=== PATIENT | male | born 1980 | race African-American/Black ===

== ENCOUNTER 2016-12-14 19:41 | Emergency (ER) | payer OTHER ==
[~2016-12-14] VITALS: Ht 172.7 cm; Wt 66.2 kg
[2016-12-14] MEDS ORDERED: NKM (19:58)
[2016-12-14] MEDS ORDERED: IBUPROFEN600 MG ORAL (20:10)
[2016-12-14] MEDS ORDERED: AMOXICILLIN500 MG ORAL (20:14)
--- NOTE | 2016-12-14 20:19 | Emergency Room Report ---
History of Present Illness General Chief Complaint: Sore Throat Source: Patient Present Illness HPI Patient presented for sore throat. The patient had gradual onset of symptoms of the past 3 days. Patient reported having some neck pain. He denied any high fever. He reported having increased difficulty swallowing. Patient gradual onset of symptoms. Patient denies any allergies. He had worsening pain with swallowing. He denied any difficulty breathing. He denied cough. Allergies: Coded Allergies: No Known Allergies (Unverified , 12/14/16) Patient History Past Medical History: see triage record Reviewed Nursing Documentation: PMH: Agreed, PSxH: Agreed Nursing Documentation-PM Past Medical History: No History, Except For Hx Asthma: Yes History Of Psychiatric Problem: Yes - Depression Hx Seizures: Yes Review of Systems All Other Systems: negative except mentioned in HPI Physical Exam Vital Signs Date Time Temp Pulse Resp B/P Pulse Ox O2 Delivery O2 Flow Rate FiO2 12/14/16 19:54 98.2 102 16 151/98 95 Room Air General Appearance: well appearing, no apparent distress, alert, GCS 15 Head: normocephalic, atraumatic ENT: hearing grossly normal, normal voice Neck: full range of motion, supple Respiratory: lungs clear, normal breath sounds, no respiratory distress, speaking full sentences Cardiovascular #1: normal peripheral pulses, regular rate, rhythm Gastrointestinal: normal inspection, normal bowel sounds, soft, no mass Musculoskeletal: normal inspection, back normal, gait/station normal, no calf tenderness Neurologic: normal inspection, alert, oriented x3, normal gait Psychiatric: mood/affect normal Skin: no rash Medical Decision Making Diagnostic Impression: Primary Impression: Sore throat ER Course Patient presented for a sore throat. Differential diagnosis included but was not limited to meningitis, exudative tonsillitis, retropharyngeal abscess, epiglottitis, strep pharyngitis. Patient's benign exam and does not appear to require any further imaging or laboratory testing at this time. Patient does not appear to have evidence of abscess the patient appears to have some petechia consistent with a strep pharyngitis. The patient is advised to follow up with primary care doctor in 1-2 days. Patient is advised to return if any worsening condition or if any changes in status that are concerning. Last Vital Signs Date Time Temp Pulse Resp B/P Pulse Ox O2 Delivery O2 Flow Rate FiO2 12/14/16 19:54 98.2 102 16 151/98 95 Room Air Status: improved Disposition: HOME, SELF-CARE Condition: Stable Scripts Amoxicillin* (AMOXIL*) 500 Mg Capsule 500 MG ORAL THREE TIMES A DAY, #21 CAP Prov: Shakir Herbert 12/14/16 Ibuprofen* (MOTRIN*) 600 Mg Tablet 600 MG ORAL Q8H Y for For Pain, #30 TAB 0 Refills Prov: Shakir Herbert 12/14/16 Patient Instructions: Sore Throat Shakir Herbert Dec 14, 2016 20:19
[2016-12-14 20:25] VITALS: BP 140/78
== END 2016-12-14 20:25 | disposition home or self-care (01) ==
LOC: EMR 20:19
DX: R07.0 Pain in throat (principal); J45.909 Unspecified asthma, uncomplicated; M54.2 Cervicalgia
CPT/HCPCS: 99284